=== PATIENT | female | born 1950 | race Caucasian/White ===

== ENCOUNTER → 2017-10-05 | Outpatient (CLI) | payer MEDICARE ==
[~2017-10-05] MED LIST: ACET-1966 PO; ACET-2708 PO; AMLO-96 PO; ATOR40TA24 PO; CALC-515 PO; DICL-195 PO; LOSA100T67 PO; VAR05PT PO
== END ==
LOC: LAB 11:47
PROVIDERS: ATTEND Emergency Medicine
DX: I10 Essential (primary) hypertension (principal); Z72.89 Other problems related to lifestyle
CPT/HCPCS: 36415; G0472; 82465; 83718; 84478; 86803

== ENCOUNTER → 2017-10-23 | Outpatient (CLI) | payer MEDICARE | LOC: RESP 01:23 | PROVIDERS: ATTEND Emergency Medicine | DX: J98.4 Other disorders of lung (principal) | CPT/HCPCS: 94060; 94726; 94729 ==

== ENCOUNTER → 2017-10-25 | Outpatient (CLI) | payer MEDICARE ==
--- NOTE | 2017-10-25 13:59 | RADIOLOGY IMAGING REPORT ---
FACILITY: [facility] PATIENT NAME: VIRGIE MENDOSA : [id number] MR: [id number] V: [id number] EXAM DATE: [id number] ORDERING PHYSICIAN: SOL CORTÉS TECHNOLOGIST: Jessica Nair PROCEDURE:BILATERAL DIGITAL SCREENING MAMMOGRAM WITH CAD ASSISTED INTERPRETATION & 3D TOMOSYNTHESIS COMPARISON:Mammogram 10/18/2016 INDICATIONS:Screening TECHNIQUE: This examination was reviewed with the aid of CAD. Breast tissue demonstrates scattered fibroglandular tissue densities. FINDINGS: There is a stable focal asymmetry in the 12 o'clock position middle third of the right breast, unchanged. There is no suspicious mass, calcification or architectural distortion. DIAGNOSTIC CATEGORY 2--BENIGN FINDING. RECOMMENDATIONS: ROUTINE YEARLY SCREENING MAMMOGRAM AND CLINICAL EVALUATION. IMPRESSION: BIRADS 2: Benign finding No mammographic evidence for malignancy. Dictated by: Jeremy Rodas M.D. on 10/25/2017 at 12:29 Transcribed by: TAYLOR on 10/25/2017 at 13:38 Approved by: Jeremy Rodas M.D. on 10/25/2017 at 13:58 [facility]
--- NOTE | 2017-10-25 17:07 | RADIOLOGY IMAGING REPORT ---
FACILITY: [facility] [place] PATIENT NAME: Liana Velazquez : 1950 MR: [id number] V: [id number] EXAM DATE: ORDERING PHYSICIAN: SOL CORTÉS TECHNOLOGIST: [place] [facility] [place] Liana Velazquez : 1950 Visit/Account:[id number] Date of Sevice: 10/25/2017 DEXA Scan 10/25/2017 9:30 AM HISTORY: Asymptomatic postmenopausal estrogen deficiency Comparison: DEXA scan from 08/13/2000. LUMBAR SPINE: The bone mineral density (BMD) measured from L1-L4 correlates with a Z-score of 1.3 and a T-score of -0.5 which is within normal range as defined by the World Health Organization. The corresponding ris k of fracture in the lumbar spine is increased less than 2 times compared with a young adult referenc e population. This value has decreased by 16.5 % since the prior study. More than 5% change is cons idered significant. HIP: Bone mineral density (BMD) measured in the Left total hip region correlates with a Z-score 0.2 and a T-score of -1.3 which is mildly osteopenic as defined by the World Health Organization. The correspo nding risk of fracture in the hip is increased 2-3 times compared with a young adult reference popula tion. This value has decreased by 18.2 % since the prior study. More than 5% change is considered si gnificant. Bone mineral density (BMD) measured in the Femoral Neck region measures 0.813 g/cm2. T-score is -1. 6. IMPRESSION: 1. Lumbar spine: Within normal range. There has been a significant interval decrease in the bone mi neral density since the previous exam. 2. Left Total Hip: Mild osteopenia. There has been a significant interval decrease in the bone mine ral density since the previous exam. 3. Femoral Neck: Bone Mineral Density is 0.813 g/cm2. Moderate osteopenia. The next DEXA scan of this patient should include the following sites: L1-L4 and the left hip. FRAX? WHO Fracture Risk Assessment Tool link: <http://www.shef.ac.uk/FRAX/tool.jsp?locationValue=9> PLEASE NOTE: 1) The World Health Organization defines low BMD as follows: T-score Normal > -1 Osteopenia < -1 and > -2.5 Osteoporosis < -2.5 without fractures Established osteoporosis < -2.5 with fractures 2) In general, you may wish to consider: Diagnosis Treatment Follow-up DEXA Normal BMD Prevention 2-3 years Osteopenia Prevention/therapy 1-2 years Osteoporosis Therapy Yearly 3) Fracture risk estimated from the T-score is more accurate for vertebral fractures (often spontane ous) than for hip fractures. Report Dictated By: Jeremy Loco MD at 10/25/2017 5:01 PM Report E-Signed By: Jeremy Loco MD at 10/25/2017 5:03 PM WSN:[email or web address]
== END ==
LOC: MAMO 01:35
PROVIDERS: ATTEND Emergency Medicine
DX: Z13.820 Encounter for screening for osteoporosis (principal); Z12.31 Encounter for screening mammogram for malignant neoplasm of breast; Z78.0 Asymptomatic menopausal state; M85.88 Other specified disorders of bone density and structure, other site
CPT/HCPCS: 77063; 77067; 77080

== ENCOUNTER 2017-11-05 11:24 | Emergency (ER) | payer MEDICARE ==
[~2017-11-05] VITALS: Ht 167.6 cm; Wt 59.0 kg
--- NOTE | 2017-11-05 11:42 | ER Report ---
History and Physical Time Seen By MD: 11:41 Hx. of Stated Complaint: pt reports she burned L hand with wax ~45mins ago (ELISA CHEUNG [facility]) HPI/ROS CHIEF COMPLAINT: Burn HISTORY OF PRESENT ILLNESS: This is a 67-year-old female who presents to the emergency department with her for a burn to the left hand. Patient states that about 1 hour prior to arrival she was heating up some wax in the microwave, it went too long and she pulled it out of the microwave and melted the bottom of the plastic container she put her hand under to capture the wax and subsequently burned her left hand. Patient does have some ruptured blisters to the middle and ring finger near the web space. Patient does have significant pain. There is sloughing skin. One remaining blistered. The area surrounded by a superficial burn. The remainder are partial-thickness ku. REVIEW OF SYSTEMS: Respiratory: No cough, no dyspnea. Cardiovascular: No chest pain, no palpitations. Gastrointestinal: No vomiting, no abdominal pain. Musculoskeletal: As above. Integumentary: As above. (ELISA CHEUNG) Allergies: Coded Allergies: Sulfa (Sulfonamide Antibiotics) (Verified Allergy, Intermediate, RASH, ) Home Meds Active Scripts Ondansetron (ZOFRAN ODT) 4 Mg Tab.rapdis, 4 MG PO Q6H Y for NAUSEA/VOMITING, # 20 TAB.[facility] 11/05/17 Hydrocodone Bit/Acetaminophen (NORCO 5-325 TABLET) 1 Each Tablet, 1 EACH PO Q4- 6H Y for PAIN, #12 TAB Prov[facility] 11/05/17 Diclofenac Sodium (DICLOFENAC SODIUM) 75 Mg Tablet.dr, 75 MG PO BID, #180 TAB 1 Refill Prov:SOL CORTÉS MD 09/17/17 Atorvastatin Calcium (LIPITOR) 40 Mg Tablet, 1 TAB PO QDAY, #30 TAB 11 Refills Prov:SOL CORTÉS MD 08/09/17 Varenicline Tartrate (CHANTIX) 0.5 Mg Tab, 0.5 MG PO QDAY, #100 TAB 9 Refills 1 tablet a day for three days , then 1 tablet twice a day for four days , and then two tabs twice a day after that Prov:SOL CORTÉS MD 08/07/17 Reported Medications Acetaminophen/Diphenhydramine (ACETAMINOPHEN PM CAPLET) 1 Each Tablet, 1 EACH PO QHS Y for PRN, TAB 08/07/17 Calcium Carbonate (TUMS) 200 Mg Tab.chew, 500 MG PO PRN Y for HEARTBURN, TAB.CHEW 03/20/17 Losartan Potassium (LOSARTAN POTASSIUM) 100 Mg Tablet, 100 MG PO QDAY 03/20/17 Amlodipine Besylate (AMLODIPINE BESYLATE) 5 Mg Tablet, 1 TAB PO QDAY, TAB 03/20/17 Past Medical/Surgical History Patient has a past medical and surgical history of chest wall pain, borderline hypertension, back pain, wears glasses and contacts, partial thyroidectomy, benign thyroid nodule, hysterectomy. (ELISA CHEUNGP-) Reviewed Nurses Notes: Yes (ELISA CHEUNGP-RANDI) Hx Smoking: Yes (1 PACK DAILY FOR 20 YEARS) Smoking Status: Current: Some Days Smoker Exposure to Second Hand Smoke?: No Hx Substance Use Disorder: No Hx Alcohol Use: Yes (ELISA CHEUNG-RANDI) Constitutional Vital Sign - Last 24 Hours 11/05/17 11/05/17 11/05/17 11/05/17 11:28 11:29 11:30 12:50 Temp 97.9 Pulse 86 Resp 16 B/P (MAP) 158/87 (110) 158/87 128/81 (97) 195/186 (189) Pulse Ox 93 O2 Delivery Room Air 11/05/17 11/05/17 11/05/17 11/05/17 13:03 13:08 13:22 13:28 Pulse 67 68 62 B/P (MAP) 143/82 (102) Pulse Ox 89 91 95 11/05/17 11/05/17 11/05/17 11/05/17 13:30 13:48 14:00 14:05 Pulse 63 77 B/P (MAP) 145/81 (102) 136/70 (92) Pulse Ox 92 91 11/05/17 11/05/17 14:25 14:30 Pulse 64 B/P (MAP) 122/75 (91) Pulse Ox 93 (JUANCHO DEL VALLE MD) Physical Exam General Appearance: The patient is alert, has no immediate need for airway protection and no current signs of toxicity. Eyes: Pupils equal and round no injection. Respiratory: Chest is non tender, lungs are clear to auscultation. Cardiac: regular rate and rhythm, no murmurs, clicks or rubs. Gastrointestinal: Abdomen is soft and non tender, no masses, bowel sounds normal. Musculoskeletal: Neck: Neck is supple and non tender. Extremities have full range of motion and are non tender. Skin: Partial-thickness burn to the palmar side of the left hand. The burn extends down to the upper 3rd of the left palm, up to the DIP of the middle and ring fingers. With blisters that have ruptured on the lower 3rd of the middle and ring finger, with exposed dermal layer. Superficial burn to the thumb, index and small finger. There is cooled wax that remains stuck to the fingers. No underlying deep structure involvement. DIFFERENTIAL DIAGNOSIS: After history and physical exam differential diagnosis was considered for burn. (ELISA CHEUNG [facility]-) Medical Decision Making ED Course/Re-evaluation Clinical Indication for ER IV: IV Access ED Course The patient was admitted to room. A history physical were obtained. Differential diagnoses were considered. After evaluation of the patient's burn on the left palm and fingers I did call down to the [facility] and spoke with Dr. Nguyen who suggested a follow-up this week in his office, and Shay. The patient's wound was debrided the majority of the wax was removed patient was given 4 mg IV Zofran, 4 mg IV morphine. Tdap updated. The patient's wound was dressed with bacitracin and Adaptic and lightly covered with Kerlix. Patient was shown how to redress the wound. Patient was also instructed to keep the wound clean and dry and change the bandages once a day and perform a debridement at home. Patient was also instructed to call the [facility] and schedule a follow-up appointment. The patient was also instructed to monitor the burn for signs of infection or any other concerns that she may have if she has any of these signs or symptoms to return to the emergency department immediately for further evaluation. A prescription for hydrocodone and Zofran was sent to the patient's pharmacy. The patient had no other questions or concerns at this time and was discharged home. Patient was in agreement with this plan of care. 11/05/2017 1:26:[address] Nguyen at the [facility] he suggested debriding the wound, having the patient's managed the wound care at home for the next couple of days and then follow-up in his office on . Did discuss this with the patient she is fine with this plan of care. Decision to Disposition Date: Nov 05, 2017 Decision to Disposition Time: 14:38 ([facility]ISA CHEUNG [facility]-) Depart Departure Latest Vital Signs Vital Signs Date Time Temp Pulse Resp B/P (MAP) Pulse Ox O2 Delivery O2 Flow Rate FiO2 11/05/17 14:30 122/75 (91) 11/05/17 14:25 64 93 11/05/17 11:29 97.9 16 Room Air (JUANCHO DEL VALLE MD) Impression: Primary Impression: Partial thickness burn of left hand Condition: Improved Disposition: HOME OR SELF-CARE Referrals: SOL CORTÉS MD (PCP) New Scripts Ondansetron (ZOFRAN ODT) 4 Mg Tab.rapdis 4 MG PO Q6H Y for NAUSEA/VOMITING, #20 TAB.MAU Prov: ELISA CHEUNG [facility]- 11/05/17 Hydrocodone Bit/Acetaminophen (NORCO 5-325 TABLET) 1 Each Tablet 1 EACH PO Q4-6H Y for PAIN, #12 TAB Prov: ELISA CHEUNG [facility]- 11/05/17 Patient Instructions: Acute Wound Care (ED), Second Degree Burn (DC) Additional Instructions: Drink plenty of fluids. Get plenty of rest. Take the medications as prescribed. If not taking the [place] then you can take Tylenol for moderate pain control. Call Dr. Nguyen's office at the [facility] to schedule a follow up appointment , . Monitor for signs of infection. Please debride your wound at home, change dressings once a day unless saturated or dirty. Use bacitracin for a non stick wound barrier. May return to the ED for any other concerns or worsening symptoms. 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
[2017-11-05] MEDS ORDERED: MORPHINE 4 MG/ML SDV IVP ONE (11:55)
[2017-11-05] MEDS ORDERED: ONDANSETRON 4 MG/2 ML VIAL IVP ONE (11:55)
[2017-11-05] MEDS ORDERED: MORPHINE 4 MG/ML SDV ONE (12:45)
[2017-11-05] MEDS ORDERED: DIPHTH/TETANUS/ACEL. PERTUSSIS IM ONLY ONE (13:30)
[2017-11-05] MEDS ORDERED: HYDR-4309 PO (13:54)
[2017-11-05] MEDS ORDERED: ONDA4TAB PO (14:26)
[2017-11-05 14:30] VITALS: BP 122/75
== END 2017-11-05 14:44 | disposition home or self-care (01) ==
LOC: ER 11:43
DX: T23.242A Burn of second degree of multiple left fingers (nail), including thumb, initial encounter (principal); X12.XXXA Contact with other hot fluids, initial encounter
CPT/HCPCS: 90471; 90715; 96374; 96375; 99284; J2405; J2270

== ENCOUNTER → 2018-03-06 | Outpatient (CLI) | payer MEDICARE ==
[~2018-03-06] MED LIST changes: +CHOL500051 PO; +FLUT16SP19 NS; +HYDR-4309 PO; +ONDA4TAB PO; +TIO18R INH; +UMEC62.5 INH
== END ==
LOC: LAB 11:51
PROVIDERS: ATTEND Emergency Medicine
DX: M85.80 Other specified disorders of bone density and structure, unspecified site (principal)
CPT/HCPCS: 36415; 82306

== ENCOUNTER → 2018-03-21 | Outpatient (CLI) | payer MEDICARE ==
--- NOTE | 2018-03-21 12:58 | RADIOLOGY IMAGING REPORT ---
FACILITY: [facility] - [place] PATIENT NAME: Liana Velazquez : 1950 MR: [id number] V: [id number] EXAM DATE: ORDERING PHYSICIAN: SOL CORTÉS TECHNOLOGIST: Location: [facility] [place] Patient: Liana Velazquez : 1950 Visit/Account:[id number] Date of Sevice: 03/21/2018 CHEST W/O CONTRAST Indication: Pulmonary nodule Comparison: CT chest 08/09/2017. TECHNIQUE: Noncontrast CT thoracic inlet through the adrenal glands obtained. One of the following d ose optimization techniques was utilized in the performance of this exam: automated exposure control; adjustment of the mA and/or kV according to the patient's size; or use of an iterative reconstructio n technique. Specific details can be referenced in the facility's radiology CT exam operational kaley cy. FINDINGS: Lungs: There is a 7 mm round, smooth bordered nodule in the left lung (image 68/103) that is unchang ed from 08/09/2017, however is increased in size compared to 07/09/2015. In 2014, the nodule measure d 4.5 mm. Remaining lung parenchyma is clear. There is mild centrilobular emphysematous changes of both lung apices. Mediastinum / solis: Heart size is normal. Great vessels are unremarkable. Musculoskeletal / Body wall: Bones are unremarkable. Lower neck: Normal. Upper abdomen: Visualized organs of the upper abdomen are normal. IMPRESSION: Left lower lobe pulmonary nodule. This is round and smooth, and appears benign however i t has increased in size compared to the oldest CT available 07/09/2015. Because it has increased in size, I think a CT-guided biopsy would be prudent.. Report Dictated By: Jeremy Rodas at 03/21/2018 12:43 PM Report E-Signed By: Jeremy Rodas at 03/21/2018 12:54 PM WSN:[email or web address]
== END ==
LOC: CT 02:08
PROVIDERS: ATTEND Emergency Medicine
DX: R91.1 Solitary pulmonary nodule (principal)
CPT/HCPCS: 71250

== ENCOUNTER → 2018-06-10 | Outpatient (CLI) | payer MEDICARE ==
[~2018-06-10] MED LIST changes: +AMLO-111 PO; -AMLO-96 PO; -LOSA100T67 PO; +LOSA100T69 PO
== END ==
LOC: LAB 16:13
PROVIDERS: ATTEND Emergency Medicine
DX: E55.9 Vitamin D deficiency, unspecified (principal)
CPT/HCPCS: 36415; 82306

== ENCOUNTER → 2018-08-26 | Outpatient (CLI) | payer MEDICARE ==
[~2018-08-26] MED LIST changes: +ASPI-1471 PO; +CHOL200022 PO; -HYDR-4309 PO; +HYDR-653 PO; -LOSA100T69 PO; +LOSA100T75 PO; +TIOT4MIS5 ASDIRECTED; +TIOT4MIS5 INH; +TRAM-420 PO
--- NOTE | 2018-08-26 17:17 | RADIOLOGY IMAGING REPORT ---
FACILITY: [facility] [place] PATIENT NAME: Liana Velazquez : 1950 MR: [id number] V: [id number] EXAM DATE: ORDERING PHYSICIAN: JIN KELLER TECHNOLOGIST: Location: [facility] Patient: Liana Velazquez : 1950 Visit/Account:[id number] Date of Sevice: 08/26/2018 CHEST W/O CONTRAST History: Pulmonary nodule TECHNIQUE: Contiguous axial images were performed through the chest to the level of the adrenal gla nds. No IV contrast was administered. Coronal and sagittal reformatting was also performed.Dose Lower ing Technique One of the following dose optimization techniques was utilized in the performance of this exam: Autom ated exposure control; adjustment of the mA and/or kV according to the patient's size; or use of an i terative reconstruction technique. Specific details can be referenced in the facility's radiology C T exam operational policy. COMPARISON STUDIES: March 21, 2018. Lungs / Pleura: Again noted is the 7 mm noncalcified smooth round nodule in the left lower lobe bes t seen on image 235 of series 4 and remains unchanged since 08/09/2017. This has increased since at which time the nodule measured 4.5 mm no other pulmonary nodules are identified. Mild centrilobular emphysema again seen Mediastinum/nodes: negative. Heart and vessels: negative. Musculoskeletal / Body wall: negative. Upper abdomen: Visualized abdominal viscera negative. IMPRESSION: 7 mm noncalcified smooth round nodule in the left lower lobe is unchanged in size when compared to . As previous noted this has increased in size when compared to 07/09/2015. For a nodule nimisha suring 6 to 8 mm in size, for a low risk patient, CT is recommended at 6-[address] a t 18-24 months. In a high-risk patient, CT is recommended in 6-12 months then at 18-24 months. Mild centrilobular emphysema Report Dictated By: Komal Bansal MD at 08/26/2018 5:08 PM Report E-Signed By: Komal Bansal MD at 08/26/2018 5:14 PM WSN:[email or web address]
== END ==
LOC: CT 01:57
PROVIDERS: ATTEND Internal Medicine
DX: R91.1 Solitary pulmonary nodule (principal); J43.9 Emphysema, unspecified
CPT/HCPCS: 71250

== ENCOUNTER → 2018-11-18 | Outpatient (CLI) | payer MEDICARE ==
[~2018-11-18] MED LIST changes: -AMLO-111 PO; +AMLO-125 PO
[2018-11-18 16:00] LABS: PLATELET COUNT, AUTOMATED 289 K/uL (150-450)
[2018-11-18 16:15] LABS: LDL CHOLESTEROL 28 mg/dl
== END ==
LOC: LAB 15:30
PROVIDERS: ATTEND Emergency Medicine
DX: E55.9 Vitamin D deficiency, unspecified (principal); M85.80 Other specified disorders of bone density and structure, unspecified site; E78.5 Hyperlipidemia, unspecified; I10 Essential (primary) hypertension
CPT/HCPCS: 36415; 82040; 82247; 82306; 82310; 82374; 82435; 82465; 82565; 82607; 82947; 83718; 84075; 84132; 84155; 84295; 84443; 84450; 84460; 84478; 84520; 85025

== ENCOUNTER → 2018-11-19 | Outpatient (CLI) | payer MEDICARE ==
--- NOTE | 2018-11-20 08:40 | RADIOLOGY IMAGING REPORT ---
FACILITY: [facility] PATIENT NAME: VIRGIE MENDOSA : [id number] MR: [id number] V: [id number] EXAM DATE: [id number] ORDERING PHYSICIAN: SOL CORTÉS TECHNOLOGIST: Ashley Winn PROCEDURE:BILATERAL DIGITAL SCREENING MAMMOGRAM WITH CAD ASSISTED INTERPRETATION & 3D TOMOSYNTHESIS COMPARISON:Prior mammograms 10/25/17, 11/13/16, 10/18/16. INDICATIONS:screening FINDINGS: There are scattered areas of fibroglandular density throughout the breasts. The parenchymal pattern has remained stable allowing for difference in mammographic technique & patient positioning. DIAGNOSTIC CATEGORY 1--NEGATIVE. RECOMMENDATIONS: ROUTINE MAMMOGRAM AND CLINICAL EVALUATION. IMPRESSION: BIRADS 1: Negative. No significant abnormality is seen. Dictated by: Komal Bansal M.D. on 11/19/2018 at 15:49 Transcribed by: OANH on 11/19/2018 at 15:53 Approved by: Komal Bansal M.D. on 11/20/2018 at 8:39 [facility]
== END ==
LOC: MAMO 11-14 14:51
PROVIDERS: ATTEND Emergency Medicine
DX: Z12.31 Encounter for screening mammogram for malignant neoplasm of breast (principal)
CPT/HCPCS: 77063; 77067